=== PATIENT | female | born 1975 | race Caucasian/White ===

== ENCOUNTER 2017-07-29 07:22 | Emergency (ER) | payer OTHER ==
[~2017-07-29] VITALS: Wt 74.4 kg
[2017-07-29] MEDS ORDERED: ALBUTEROL 0.083% (NEB) 2.5 MG/3 ML AMP NEB STA (08:01)
--- NOTE | 2017-07-29 09:11 | RADRPT ---
PROCEDURE: XR Chest. CLINICAL INDICATION: Cough, wheezing TECHNIQUE: Single frontal view of the chest was obtained COMPARISON: None FINDINGS: The heart and mediastinum are within normal limits. The lungs are clear. There is no pleural effusion or pneumothorax. RPTAT: AA IMPRESSION: No acute disease. .Patrick Kovacs MD, MD Date Time Electronically viewed and signed by .Patrick Kovacs MD, on 07/29/2017 09:11 .S/
[2017-07-29] MEDS ORDERED: DOXY100T20 PO (09:20)
[2017-07-29] MEDS ORDERED: NAPR-260 PO (09:20)
[2017-07-29] MEDS ORDERED: ALBU8.5H3 INH (09:20)
--- NOTE | 2017-07-29 09:29 | ERD ---
ER Documentation Chief Complaint Chief Complaint SOB/COUGH HPI This is a 42-year-old otherwise healthy female who presents emergency department for complaints of cough, congestion, body aches, and pleuritic chest pain only when coughing 2 weeks. She also notes intermittent fever which has been well controlled with Tylenol at home. Patient states she has multiple medication allergies including penicillin and erythromycin. She has been attempting to treat her symptoms with natural remedies at home with mild relief. She denies nausea, vomiting, abdominal pain. ROS All systems reviewed and are negative except as per history of present illness. Medications Home Meds Active Scripts Naproxen* (Naprosyn*) 500 Mg Tablet, 500 MG PO BID Y for PAIN AND/OR INFLAMMATION, #30 TAB Prov:ANDRE ALVAREZ PA-C 07/29/17 Albuterol Sulfate* (Proair HFA*) 8.5 Gm Hfa.aer.ad, 2 PUFF INH Q4, #1 INHALER Prov:ANDRE ALVAREZ PA-C 07/29/17 Doxycycline Hyclate* (Doxycycline Hyclate*) 100 Mg Tablet.dr, 100 MG PO BID for 10 Days, TAB Prov:ANDRE ALVAREZ PA-C 07/29/17 PMhx/Soc Medical and Surgical Hx: pt denies Medical Hx Hx Alcohol Use: No Hx Substance Use: No Hx Tobacco Use: No Physical Exam Vitals Vital Signs Date Time Temp Pulse Resp B/P Pulse Ox O2 Delivery O2 Flow Rate FiO2 07/29/17 08:22 80 18 96 21 07/29/17 07:26 97.4 86 18 122/71 100 Physical Exam Const: Well-developed, well-nourished, no acute distress Head: Atraumatic Eyes: Normal Conjunctiva ENT: Normal External Ears, Nose and Mouth.Posterior pharynx without swelling , erythema or exudate. Neck: Full range of motion..~ No meningismus. Resp: Right upper lobe with inspiratory wheezing. Active cough on exam. No rhonchi or rales. Cardio: Regular rate and rhythm, no murmurs Skin: No petechiae or rashes Back: No midline or flank tenderness Ext: No cyanosis, or edema Neur: Awake and alert Psych: Normal Mood and Affect Results 24 hrs Current Medications Medications (Trade) Dose Ordered Sig/Aliza Route PRN Reason Start Time Stop Time Status Last Admin Dose Admin Albuterol (Proventil 0.083% (Neb)) 5 mg ONCE STAT NEB 07/29/17 08:01 07/29/17 08:05 DC 07/29/17 08:21 Procedures/MDM 42-year-old otherwise healthy female presents the emergency department for upper respiratory complaints including cough, congestion, and body aches 2 weeks. Physical exam with evidence of right upper lobe wheezing. Vital signs reviewed and within normal limits upon arrival. Patient has attempted to treat his at home with natural remedies as she reports multiple medication allergies. Patient received a nebulizer treatment while in the emergency department which improved her right-sided wheezing. Chest x-ray negative for acute process. Based on history and clinical exam findings the patient does not appear to have evidence of pneumonia, strep pharyngitis, urinary tract infection, bacteremia, sepsis, or meningitis. Patient symptoms concerning for likely viral upper respiratory infection versus acute bronchitis. Based on the duration of the patient's symptoms I will be treating her with an antibiotic and albuterol inhaler. For these reasons I do not believe it is necessary to obtain laboratory testing or additional diagnostic imaging. I believe it would be appropriate for symptom control, and close outpatient primary care follow-up. Based on patient's history of present illness and physical examination the decision was made to discharge. The patient was re-evaluated after ED treatment and stabilizing measures, and symptoms have improved. There is no evidence of life threatening injuries or illnesses at this time. On re-examination, patient resting in no distress, stable vital signs, reports feeling better and safe for discharge with outpatient follow up with PMD in 1-2 days. Patient given return precautions. Departure Diagnosis: Primary Impression: Wheezing Additional Impressions: Cough Congestion of nasal sinus Condition: Good Patient Instructions: Bronchitis With Wheezing (Adult) Additional Instructions: Call your primary care doctor TOMORROW for an appointment during the next 1-2 days.See the doctor sooner or return here if your condition worsens before your appointment time. ANDRE ALVAREZ PA-C Jul 29, 2017 09:29
== END 2017-07-29 09:43 | disposition home or self-care (01) ==
LOC: FTE 07:22
DX: R06.2 Wheezing (principal); R05 Cough; R09.81 Nasal congestion
CPT/HCPCS: 71010; 94664